=== PATIENT | female | born 1955 | race Caucasian/White ===

== ENCOUNTER 2017-07-08 10:03 | Emergency (ER) | payer MEDICARE ==
[2017-07-08] MEDS ORDERED: Phenergan 25 MG INJ IM ONE (10:58)
[2017-07-08] MEDS ORDERED: Lactated Ringers 1,000 ML IV SCH (11:00)
--- NOTE | 2017-07-08 11:03 | ERPHSYRPT ---
- History of Present Illness Time Seen by Provider: 07/08/17 10:49 Source: patient, family Patient Subjective Stated Complaint: abdominal pain, nausea, diarrhea Triage Nursing Assessment: pt to er c/o lower abdominal pain, nausea and diarrhea, denies vomiting, states has been ongoing x4 days Physician History: CC: diarrhea hx: 61 y/o patient of Dr Gay with chronic diarrhea, uses creon and lomotil. Much worse over past 4 days. She is weak all over. She has had chronic weight loss. She has moved in with her daughter. No vomiting. Has cramping abd pain. Tried to have colonoscopy but she is too scared. Saw Dr Sharath FLOWERS but she did not meld. No chest pain. No fever or chills. Severity: severe Allergies/Adverse Reactions: nalbuphine HCl [From Nubain] Allergy (Mild, Verified 07/08/17 10:42) Penicillins Allergy (Mild, Verified 07/08/17 10:42) vancomycin Allergy (Mild, Verified 07/08/17 10:42) kidney failure et mary blood glucose aspirin Adverse Reaction (Intermediate, Verified 07/08/17 10:42) Nausea and Vomiting morphine Adverse Reaction (Intermediate, Verified 07/08/17 10:42) Nausea and Vomiting Home Medications: Diphenoxylate HCl/Atropine [Lomotil] 1 udtab PO Q4H 04/25/15 [History] Oxycodone HCl/Acetaminophen [Percocet 10-325 mg Tablet] 1 each PO QID 04/25/15 [ History] Zolpidem Tartrate [Ambien] 10 mg PO HS 04/25/15 [History] Aspirin [Aspirin EC] 162 mg PO DAILY 06/05/16 [History] Trazodone HCl 150 mg PO HS 06/05/16 [History] Buspirone HCl [Buspar] 10 mg PO BID 09/17/16 [History] Gabapentin 600 tab PO TID 09/17/16 [History] Lipase/Protease/Amylase [Sonya Dr 3,000 Units Capsule] 1 each PO TIDAC 09/17/16 [History] Amitriptyline HCl [Elavil] 50 mg PO DAILY 07/07/17 [History] Hx Tetanus, Diphtheria Vaccination/Date Given: No Hx Influenza Vaccination/Date Given: Yes Hx Pneumococcal Vaccination/Date Given: Yes - Review of Systems Constitutional: Fatigue, Malaise, Weakness, No Fever, No Chills Eyes: No Symptoms Ears, Nose, & Throat: No Symptoms Respiratory: No Cough, No Dyspnea Cardiac: No Chest Pain Abdominal/Gastrointestinal: Abdominal Pain, Nausea, Diarrhea, No Vomiting Genitourinary Symptoms: No Dysuria Psychological: Depression All Other Systems: Reviewed and Negative - Past Medical History Pertinent Past Medical History: Yes Neurological History: Stroke ENT History: No Pertinent History Cardiac History: Coronary Artery Disease Respiratory History: COPD Endocrine Medical History: No Pertinent History Musculoskeletal History: Arthritis, Other GI Medical History: Irritable Bowel History: No Pertinent History Psycho-Social History: Anxiety, Depression Female Reproductive Disorders: No Pertinent History Other Medical History: insomnia - Past Surgical History Past Surgical History: Yes Neuro Surgical History: No Pertinent History Cardiac: CABG Respiratory: No Pertinent History Gastrointestinal: Appendectomy Genitourinary: No Pertinent History Musculoskeletal: Orthopedic Surgery Female Surgical History: Tubal Ligation Other Surgical History: CAROTID BYPASS, , states 15 knee replacements (total bilateral),toe surgery,. Septic left knee - Social History Smoking Status: Current every day smoker How long have you smoked: 30 Exposure to second hand smoke: Yes Drug Use: none Patient Lives Alone: No - Female History Hx Now: No - Nursing Vital Signs Nursing Vital Signs: Initial Vital Signs Temperature 97.8 F 07/08/17 10:31 Pulse Rate 89 07/08/17 10:31 Respiratory Rate 20 07/08/17 10:31 Blood Pressure 139/87 07/08/17 10:31 O2 Sat by Pulse Oximetry 98 07/08/17 10:31 Pain Scale Pain Intensity 4 - Physical Exam General Appearance: alert, other (frail, elderly lady) Eye Exam: PERRL/EOMI Ears, Nose, Throat Exam: dry mucous membranes Neck Exam: normal inspection, supple Respiratory Exam: normal breath sounds Cardiovascular Exam: regular rate/rhythm Gastrointestinal/Abdomen Exam: soft, distention, other (diffuse discomfort, no mass) Back Exam: normal inspection Extremity Exam: normal inspection Neurologic Exam: alert, oriented x 3, cooperative, sensation nml, No motor deficits Skin Exam: warm, dry, other (sallow appearance) SpO2 Interpretation: normal SpO2: 98 Oxygen Delivery: Room Air - Course Nursing assessment & vital signs reviewed: Yes Ordered Tests: Active Orders 24 hr Category Date Time Status IV Insertion STAT Care 07/08/17 10:58 Active cath [Cath for Specimen-Straight] STAT Care 07/08/17 11:00 Active ABDOMEN AND PELVIS W CONTRAST [CT] Stat Exams 07/08/17 13:20 Completed CBC W DIFF Stat Lab 07/08/17 11:07 Completed CMP Stat Lab 07/08/17 11:07 Completed LIPASE Stat Lab 07/08/17 11:07 Completed Lactic Acid Stat Lab 07/08/17 10:58 Completed UA W/RFX UR CULTURE Stat Lab 07/08/17 11:30 Completed Medication Summary Generic Name Dose Route Start Last Admin Trade Name Freq PRN Reason Stop Dose Admin Lactated Ringer's 1,000 mls @ 250 mls/hr 07/08/17 11:00 07/08/17 11:27 Lactated Ringers IV 08/07/17 10:59 250 mls/hr .Q4H ASYA Administration Discontinued Medications Generic Name Dose Route Start Last Admin Trade Name Freq PRN Reason Stop Dose Admin Promethazine HCl 12.5 mg 07/08/17 10:58 07/08/17 11:27 Phenergan 25 Mg Inj IM 07/08/17 10:59 12.5 mg STAT ONE Administration Promethazine HCl Confirm 07/08/17 11:20 Phenergan 25 Mg Inj Administered 07/08/17 11:21 Dose 25 mg .ROUTE .STK-MED ONE Lab/Rad Data: Laboratory Result Diagrams 07/08/17 11:07 07/08/17 11:07 Laboratory Results 07/08/17 07/08/17 07/08/17 Range/Units 11:30 11:07 11:07 WBC 13.5 H (4.0-10.5) K/mm3 RBC 5.67 H (4.1-5.4) M/mm3 Hgb 16.1 H (12.0-16.0) gm/dl Hct 47.5 H (35-47) % MCV 83.8 (78-100) fl MCH 28.3 (26-32) pg MCHC 33.9 (32-36) g/dl RDW 14.2 H (11.5-14.0) % Plt Count 395 (150-450) K/mm3 MPV 10.3 H (6-9.5) fl Gran % 66.1 H (36.0-66.0) % Lymphocytes % 29.4 (24.0-44.0) % Monocytes % 3.9 (0.0-12.0) % Eosinophils % 0.4 (0.00-5.0) % Basophils % 0.2 (0.0-0.4) % Basophils # 0.03 (0-0.4) Sodium 142 (137-145) mmol/L Potassium 3.8 (3.5-5.1) mmol/L Chloride 105 (98-107) mmol/L Carbon Dioxide 23 (22-30) mmol/L Anion Gap 17.9 H (5-15) MEQ/L BUN 10 (7-17) mg/dL Creatinine 0.82 (0.52-1.04) mg/dL Estimated GFR > 60 ML/MIN Glucose 98 (74-106) mg/dL Lactic Acid (0.4-2.0) Calcium 9.9 (8.4-10.2) mg/dL Total Bilirubin 0.50 (0.2-1.3) mg/dL AST 20 (14-36) U/L ALT 10 (0-35) U/L Alkaline Phosphatase 124 (38-126) U/L Serum Total Protein 7.9 (6.3-8.2) g/dL Albumin 4.5 (3.5-5.0) g/dL Lipase 108 (23-300) U/L Ur Collection Type CATH Urine Color YELLOW (YELLOW) Urine Appearance CLEAR (CLEAR) Urine pH 5.0 (5-6) Ur Specific [place] 1.010 (1.005-1.025) Urine Protein NEGATIVE (Negative) Urine Ketones NEGATIVE (NEGATIVE) Urine Blood NEGATIVE (0-5) Papa/ul Urine Nitrite NEGATIVE (NEGATIVE) Urine Bilirubin NEGATIVE (NEGATIVE) Urine Urobilinogen NORMAL (0-1) mg/dL Ur Leukocyte Esterase NEGATIVE (NEGATIVE) Urine Culture Reflexed NO (NO) Urine Glucose NEGATIVE (NEGATIVE) mg/dL Specimen Received 07/08/17 1130 07/08/17 Range/Units 10:58 WBC (4.0-10.5) K/mm3 RBC (4.1-5.4) M/mm3 Hgb (12.0-16.0) gm/dl Hct (35-47) % MCV (78-100) fl MCH (26-32) pg MCHC (32-36) g/dl RDW (11.5-14.0) % Plt Count (150-450) K/mm3 MPV (6-9.5) fl Gran % (36.0-66.0) % Lymphocytes % (24.0-44.0) % Monocytes % (0.0-12.0) % Eosinophils % (0.00-5.0) % Basophils % (0.0-0.4) % Basophils # (0-0.4) Sodium (137-145) mmol/L Potassium (3.5-5.1) mmol/L Chloride (98-107) mmol/L Carbon Dioxide (22-30) mmol/L Anion Gap (5-15) MEQ/L BUN (7-17) mg/dL Creatinine (0.52-1.04) mg/dL Estimated GFR ML/MIN Glucose (74-106) mg/dL Lactic Acid 1.2 (0.4-2.0) Calcium (8.4-10.2) mg/dL Total Bilirubin (0.2-1.3) mg/dL AST (14-36) U/L ALT (0-35) U/L Alkaline Phosphatase (38-126) U/L Serum Total Protein (6.3-8.2) g/dL Albumin (3.5-5.0) g/dL Lipase (23-300) U/L Ur Collection Type Urine Color (YELLOW) Urine Appearance (CLEAR) Urine pH (5-6) Ur Specific [place] (1.005-1.025) Urine Protein (Negative) Urine Ketones (NEGATIVE) Urine Blood (0-5) Papa/ul Urine Nitrite (NEGATIVE) Urine Bilirubin (NEGATIVE) Urine Urobilinogen (0-1) mg/dL Ur Leukocyte Esterase (NEGATIVE) Urine Culture Reflexed (NO) Urine Glucose (NEGATIVE) mg/dL Specimen Received - Progress Progress Note: 07/08/17 13:05 Labs reviewed with pt. She drank oral contrast. Await CT scan. IVF in progress. 07/08/17 13:57 CT abdpelvis: 1. Sigmoid diverticulosis without diverticulitis. 2. Small hiatal hernia. 3. Remaining CT abdomen/pelvis with contrast exam negative. 07/08/17 14:39 The patient is stable. No diarrhea here. Advised follow up with Dr Gay this week. Counseled pt/family regarding: lab results, diagnosis, need for follow-up, rad results - Departure Time of Disposition: 14:40 Departure Disposition: Home Clinical Impression: Diarrhea, Dehydration Condition: Fair Critical Care Time: No Referrals: MILE GAY [Primary Care Provider] - Instructions: Diarrhea and Traveler's Diarrhea, Adult (DC) Additional Instructions: VOMITING AND DIARRHEA 1. Take only small amounts of clear, cool liquids at frequent intervals as tolerated for the next 24-48 hours. Avoid milk products and orange juice. Clear liquids are those liquids which you can see through. 2. Pedialyte and popsicles are recommended clear liquids. 3. If the condition worsens you should contact your family physician or return to the emergency department for re-evaluation. See Dr Gay this week as instructed. Continue lomotil as already prescribed.
[2017-07-08 11:13] LABS: BASOPHIL % 0.2 % (0.0-0.4); Basophil (Absolute #) 0.03 (0-0.4); Eosinophil % 0.4 % (0.00-5.0); Eosinophil (Absolute #) 0.06 (0-0.5); Granulocytes % 66.1 % (36.0-66.0); Hematocrit 47.5 % (35-47); Hemoglobin 16.1 gm/dl (12.0-16.0); Lymphocyte (Absolute #) 3.96 (1.0-4.6); Lymphocytes % 29.4 % (24.0-44.0); Mean Cell Volume 83.8 fl (78-100); Mean Corpuscular Hgb Concent. 33.9 g/dl (32-36); Mean Platelet Volume 10.3 fl (6-9.5); Monocyte (Absolute #) 0.52 (0.0-1.3); Monocytes % 3.9 % (0.0-12.0); Platelet Count 395 K/mm3 (150-450); Red Blood Count 5.67 M/mm3 (4.1-5.4); Red Cell Distribution Width 14.2 % (11.5-14.0); White Blood Count 13.5 K/mm3 (4.0-10.5)
[2017-07-08 11:15] LABS: Mean Corpuscular Hemoglobin 28.3 pg (26-32)
[2017-07-08] MEDS ORDERED: Lactated Ringers 1,000 ML IV ONE (11:20)
[2017-07-08] MEDS ORDERED: Phenergan 25 MG INJ ONE (11:20)
[2017-07-08 11:38] LABS: Appearance CLEAR (CLEAR); Bilirubin NEGATIVE (NEGATIVE); Blood NEGATIVE Ery/ul (0-5); Glucose NEGATIVE (NEGATIVE); Ketones NEGATIVE (NEGATIVE); Leukocyte Esterase NEGATIVE (NEGATIVE); Nitrite NEGATIVE (NEGATIVE); Protein,Urine Dip NEGATIVE (Negative); Urobilinogen NORMAL mg/dL (0-1)
[2017-07-08 11:41] LABS: ALBUMIN 4.5 g/dL (3.5-5.0); ALKALINE PHOSPHATASE 124 U/L (38-126); ANION GAP 17.9 MEQ/L (5-15); BLOOD UREA NITROGEN 10 mg/dL (7-17); CHLORIDE 105 mmol/L (98-107); Calcium 9.9 mg/dL (8.4-10.2); Carbon Dioxide 23 mmol/L (22-30); Creatinine 1 0.82 mg/dL (0.52-1.04); Glucose 98 mg/dL (74-106); LIPASE 108 U/L (23-300); Potassium 3.8 mmol/L (3.5-5.1); SGOT/AST 20 U/L (14-36); SGPT/ALT 10 U/L (0-35); SODIUM 142 mmol/L (137-145); Total Protein 7.9 g/dL (6.3-8.2)
--- NOTE | 2017-07-08 13:46 | XRAY ---
Indication: Abdominal pain, diarrhea, and weight loss. Multiple contiguous axial images obtained through the abdomen and pelvis using 80 cc Isovue 370 contrast. Enteric contrast also administered. Comparison: None Lung bases demonstrates minimal bibasilar fibrosis/scarring. No infiltrate or effusion. Heart is not enlarged. Small hiatal hernia. Contrasted stomach and bowel loops appear nonobstructed. Scattered sigmoid diverticulosis without diverticulitis. Previous reported appendectomy. Remaining liver, gallbladder, pancreas, spleen, adrenal glands, kidneys, ureters, bladder, and uterus appear unremarkable. Mild aortoiliac calcifications. No AAA or pathologic retroperitoneal lymphadenopathy. Osseous structures intact with lumbosacral junction degenerative disc disease. Impression: 1. Sigmoid diverticulosis without diverticulitis. 2. Small hiatal hernia. 3. Remaining CT abdomen/pelvis with contrast exam negative. CTDI 8.07
[2017-07-08 14:41] VITALS: BP 102/66; PULSE 84; O2SAT 98
== END 2017-07-08 14:54 | disposition home or self-care (01) ==
LOC: ED 10:03
DX: R19.7 Diarrhea, unspecified (principal); E86.0 Dehydration; Z79.899 Other long term (current) drug therapy; I25.810 Atherosclerosis of coronary artery bypass graft(s) without angina pectoris; J44.9 Chronic obstructive pulmonary disease, unspecified; M19.90 Unspecified osteoarthritis, unspecified site; F41.8 Other specified anxiety disorders
CPT/HCPCS: 96372; 99284; 36000; 96360; 96361; 81002; 36415; 83690; 85025; 80053; 74177; 83605; P9612; 99283; J2550

== ENCOUNTER 2019-08-14 09:50 | Inpatient (IN) | payer MEDICARE ==
[2019-08-14] MEDS ORDERED: TYLENOL 325 MG PO PRN (14:16)
[2019-08-14] MEDS ORDERED: VENTOLIN COMMON CANISTER IH PRN (14:19)
[2019-08-14 15:26] LABS: ALBUMIN 3.7 g/dL (3.5-5.0); ALKALINE PHOSPHATASE 95 U/L (38-126); ANION GAP 9.5 MEQ/L (5-15); BLOOD UREA NITROGEN 15 mg/dL (7-17); CHLORIDE 106 mmol/L (98-107); Carbon Dioxide 27 mmol/L (22-30); Glucose 86 mg/dL (74-106); Potassium 4.5 mmol/L (3.5-5.1); SGOT/AST 17 U/L (14-36); SGPT/ALT 7 U/L (0-35); SODIUM 138 mmol/L (137-145); Total Protein 6.8 g/dL (6.3-8.2)
[2019-08-14] MEDS: ROCEPHIN 1 Gm-D5w 50 ml Bag** 1 G/50 ML IVPB IV SCH (15:45)
[2019-08-14] MEDS: NICODERM CQ 14 MG TOP SCH (15:45)
[2019-08-14] MEDS: Zithromax 500 MG/ 250 ML NaCl Premix 500 MG/250 ML IVPB IV SCH (15:45)
[2019-08-14] MEDS ORDERED: MEDICATION INTERVENTION MC SCH (15:45)
[2019-08-14 15:52] LABS: Absolute Neutrophil Ct (ANC) 5.61 (1.4-6.9); BASOPHIL % 0.2 % (0.0-0.4); Basophil (Absolute #) 0.02 (0-0.4); Eosinophil % 1.1 % (0.00-5.0); Hematocrit 39.9 % (35-47); Lymphocyte (Absolute #) 3.25 (1.0-4.6); Lymphocytes % 34.3 % (24.0-44.0); Mean Cell Volume 86.2 fl (78-100); Mean Corpuscular Hemoglobin 28.1 pg (26-32); Mean Corpuscular Hgb Concent. 32.6 g/dl (32-36); Mean Platelet Volume 10.9 fl (7.5-11.0); Monocyte (Absolute #) 0.49 (0.0-1.3); Monocytes % 5.2 % (0.0-12.0); Neutrophil % 59.2 % (36.0-66.0); Platelet Count 255 K/mm3 (150-450); Red Blood Count 4.63 M/mm3 (4.1-5.4); Red Cell Distribution Width 15.5 % (11.5-14.0); White Blood Count 9.5 K/mm3 (4.0-10.5)
[2019-08-14] MEDS: Protonix 40MG Tablet PO SCH (16:28)
[2019-08-14] MEDS: Neurontin 400 MG PO SCH ×2 (16:28→20:39)
[2019-08-14] MEDS: BENTYL 20 MG PO SCH ×2 (16:28→20:41)
[2019-08-14] MEDS ORDERED: PROTEASE PO SCH (16:30)
[2019-08-14] MEDS ORDERED: LIPASE PO SCH (16:30)
[2019-08-14] MEDS ORDERED: AMYLASE PO SCH (16:30)
[2019-08-14] MEDS: PANCRELIPASE DR 5,000 UNIT CAP PO SCH (17:09)
[2019-08-14] MEDS: Lomotil PO PRN ×2 (17:58→23:32)
[2019-08-14] MEDS: ULTRAM 50 MG PO PRN (19:32)
[2019-08-14] MEDS: Ambien 10 MG PO SCH (20:39)
[2019-08-14] MEDS: Abilify 10 MG PO SCH (20:39)
[2019-08-14] MEDS: Zofran 4 MG/2 ML VIAL IV PRN (20:41)
[2019-08-14] MEDS: REQUIP 2MG TAB PO SCH (20:41)
[2019-08-14] MEDS: Desyrel 150 MG PO SCH (20:42)
[2019-08-14] MEDS: ceLEXa 20 MG PO SCH (20:42)
[2019-08-14] MEDS ORDERED: NON-FORMULARY ITEM (Aripiprazole [Aripiprazole] 5 mg) PO SCH (22:00)
[2019-08-14] MEDS ORDERED: NON-FORMULARY ITEM (Trazodone Hcl [Trazodone Hcl] 150 MG) PO SCH (22:00)
[2019-08-15] MEDS: ULTRAM 50 MG PO PRN ×2 (01:20→06:54)
[2019-08-15] MEDS: Lomotil PO PRN ×4 (06:53→22:03)
[2019-08-15] MEDS: PANCRELIPASE DR 5,000 UNIT CAP PO SCH ×3 (08:04→17:12)
[2019-08-15] MEDS: Zofran 4 MG/2 ML VIAL IV PRN ×2 (08:05→17:32)
[2019-08-15] MEDS: ROCEPHIN 1 Gm-D5w 50 ml Bag** 1 G/50 ML IVPB IV SCH (09:42)
[2019-08-15] MEDS: Neurontin 400 MG PO SCH ×3 (09:43→22:04)
[2019-08-15] MEDS: Protonix 40MG Tablet PO SCH (09:43)
[2019-08-15] MEDS: BENTYL 20 MG PO SCH ×4 (09:43→22:03)
[2019-08-15] MEDS: Zithromax 500 MG/ 250 ML NaCl Premix 500 MG/250 ML IVPB IV SCH (09:43)
--- NOTE | 2019-08-15 10:22 | PCM.HP ---
History of Present Illness - Chief Complaint Chief Complaint: PNEUMONIA, R/O COVID-19 History of Present Illness: is a 63 year old female patient of Dr Gay who presented to [facility] on date of admission, she reported cough, difficulty breathing and fever at night. she was hospitalized within the last 3 weeks at [facility] and covid swab was negative, she had left knee replacement/revision on 06/22/19 and has done poorly since then. she complains of feeling heavy in her chest this morning contantly over the last couple of weeks and difficulty getting in a good breath, her cough is nonproductive. - Review of Systems Constitutional: Fever, Chills Ears, Nose, & Throat: No Symptoms Respiratory: Cough, Short Of Breath Cardiac: Chest Pain Abdominal/Gastrointestinal: Nausea (chronic), No Abdominal Pain, No Vomiting, No Diarrhea Skin: No Rash Neurological: No Dizziness, No Focal Weakness, No Sensory Changes All Other Systems: Reviewed and Negative Medications & Allergies Home Medications: Home Medication List Trazodone HCl 150 mg PO HS 06/05/16 [History Confirmed 08/14/19] ARIPiprazole [Aripiprazole] 5 mg PO HS 08/14/19 [History Confirmed 08/14/19] Albuterol Sulfate [Albuterol Sulfate Hfa] 2 puff IH Q4HPRN PRN 08/14/19 [ History Confirmed 08/14/19] Arformoterol Tartrate [Brovana] 15 mcg IH BID 08/14/19 [History Confirmed ] Budesonide 0.5 mg/2 ml [Pulmicort 0.5 mg/2 ml Respules] 0.5 mg IH BID [History Confirmed 08/14/19] Citalopram Hydrobromide 20 mg* [ceLEXa 20 MG] 20 mg PO HS 08/14/19 [History Confirmed 08/14/19] Dicyclomine HCl 20 mg [Bentyl 20 mg] 20 mg PO QID 08/14/19 [History Confirmed 08/14/19] Diphenoxylate HCl/Atropine [Diphenoxylate-Atrop 2.5-0.025] 1 tab PO Q4H [History Confirmed 08/14/19] Gabapentin 800 mg PO TID 08/14/19 [History Confirmed 08/14/19] Lipase/Protease/Amylase [Sonya Mcclellan 12,000 Units Capsule] 1 cap PO AC 08/14/19 [ History Confirmed 08/14/19] Omeprazole 20 mg PO DAILY 08/14/19 [History Confirmed 08/14/19] Ropinirole HCl 1 mg PO HS 08/14/19 [History Confirmed 08/14/19] Zolpidem Tartrate 10 mg PO HS 08/14/19 [History Confirmed 08/14/19] ondansetron HCL [Ondansetron HCl] 4 mg PO QID 08/14/19 [History Confirmed ] Allergies/Adverse Reactions: Allergies Allergy/AdvReac Type Severity Reaction Status Date / Time nalbuphine HCl [From Nubain] Allergy Mild Verified 07/08/17 10:42 Penicillins Allergy Mild Verified 07/08/17 10:42 vancomycin Allergy Mild Verified 07/08/17 10:42 aspirin AdvReac Intermediate Nausea and Verified 07/08/17 10:42 Vomiting morphine AdvReac Intermediate Nausea and Verified 07/08/17 10:42 Vomiting - Past Medical History Past Medical History: Yes Neurological History: Stroke ENT History: No Pertinent History Cardiac History: Coronary Artery Disease Respiratory History: COPD Endocrine Medical History: No Pertinent History Musculoskelatal History: Arthritis, Other GI Medical History: Irritable Bowel, Other History: No Pertinent History Pyscho-Social History: Anxiety, Depression Reproductive Disorders: No Pertinent History Comment: insomnia; panceratic insufficiency - Female History Are you now?: No - Past Surgical History Past Surgical History: Yes Neuro Surgical History: No Pertinent History Cardiac History: CABG Respiratory Surgery: No Pertinent History GI Surgical History: Appendectomy Genitourinary Surgical Hx: No Pertinent History Musculskeletal Surgical Hx: Orthopedic Surgery Female Surgical History: Tubal Ligation Other Surgical History: CAROTID BYPASS, , states 15 knee replacements (total bilateral),toe surgery,. Septic left knee - Social History Smoking Status: Current every day smoker How long have you smoked: "35 years" Exposure to second hand smoke: Yes Alcohol: None Drug Use: none - Physical Exam Vital Signs: Vital Signs - 24 hr Temp Pulse Resp BP BP Pulse Ox 08/15/19 10:00 18 08/15/19 09:36 70 18 96 08/15/19 08:58 14 08/15/19 08:00 97.8 F 66 20 117/69 93 L 08/15/19 07:04 74 20 92 L 08/15/19 07:00 16 08/15/19 06:00 62 13 94 L 08/15/19 05:00 14 08/15/19 04:00 98.1 F 71 19 105/68 93 L 08/15/19 03:00 61 16 97 08/15/19 02:00 16 08/15/19 01:00 74 16 92 L 08/15/19 00:58 16 08/14/19 23:41 98.1 F 68 16 107/68 93 L 08/14/19 22:00 69 20 91 L 08/14/19 20:59 26 H 08/14/19 20:00 98.1 F 89 18 104/63 94 L 08/14/19 19:45 20 08/14/19 19:00 72 20 92 L 08/14/19 18:00 68 18 90 L 08/14/19 17:00 17 08/14/19 16:16 98.3 F 71 20 124/68 93 L 08/14/19 16:00 97.8 F 65 17 114/62 92 L 08/14/19 15:33 71 18 94 L 08/14/19 15:00 68 18 94 L 08/14/19 13:31 98.3 F 71 20 124/68 93 L Oxygen-Last 24 hours Oxygen Flowrate (L/min)-RT 4 Oxygen Flowrate (L/min)-RT 4 Oxygen Flowrate (L/min)-RT 5 Oxygen Flowrate (L/min)-RT 4 Oxygen Flowrate (L/min)-RT 4 General Appearance: no apparent distress, alert Neurologic Exam: alert, oriented x 3, cooperative Respiratory Exam: diminished breath sounds, wheezing Cardiovascular Exam: regular rate/rhythm, normal heart sounds, normal peripheral pulses Gastrointestinal/Abdomen Exam: soft, normal bowel sounds, No tenderness, No mass Extremity Exam: normal inspection, normal range of motion, pelvis stable Skin Exam: normal color, warm, dry, No rash Results - Labs Lab/Micro Results: Lab Results-Last 24 Hours 08/14/19 08/14/19 Range/Units 15:05 15:05 WBC 9.5 (4.0-10.5) K/mm3 RBC 4.63 (4.1-5.4) M/mm3 Hgb 13.0 (12.0-16.0) gm/dl Hct 39.9 (35-47) % MCV 86.2 (78-100) fl MCH 28.1 (26-32) pg MCHC 32.6 (32-36) g/dl RDW 15.5 H (11.5-14.0) % Plt Count 255 (150-450) K/mm3 MPV 10.9 (7.5-11.0) fl Gran % 59.2 (36.0-66.0) % Eos # (Auto) 0.10 (0-0.5) Absolute Lymphs (auto) 3.25 (1.0-4.6) Absolute Monos (auto) 0.49 (0.0-1.3) Lymphocytes % 34.3 (24.0-44.0) % Monocytes % 5.2 (0.0-12.0) % Eosinophils % 1.1 (0.00-5.0) % Basophils % 0.2 (0.0-0.4) % Absolute Granulocytes 5.61 (1.4-6.9) Basophils # 0.02 (0-0.4) Sodium 138 (137-145) mmol/L Potassium 4.5 (3.5-5.1) mmol/L Chloride 106 (98-107) mmol/L Carbon Dioxide 27 (22-30) mmol/L Anion Gap 9.5 (5-15) MEQ/L BUN 15 (7-17) mg/dL Creatinine 0.70 (0.52-1.04) mg/dL Estimated GFR > 60.0 ML/MIN Glucose 86 (74-106) mg/dL Calcium 9.0 (8.4-10.2) mg/dL Total Bilirubin 0.40 (0.2-1.3) mg/dL AST 17 (14-36) U/L ALT 7 (0-35) U/L Alkaline Phosphatase 95 (38-126) U/L Serum Total Protein 6.8 (6.3-8.2) g/dL Albumin 3.7 (3.5-5.0) g/dL Microbiology 08/14/19 15:05 Blood Culture - Preliminary Blood NO GROWTH TO DATE 08/14/19 14:55 Blood Culture - Preliminary Blood NO GROWTH TO DATE - Other Procedures and Tests Respiratory Therapy 08/14/19 15:06 Oxygen Nasal Cannula 2 lpm Respiratory Therapy Assessment DAILY 08/15/19 10:15 EKG ROUTINE Assessment/Plan (1) Acute exacerbation of chronic obstructive pulmonary disease (COPD) Current Visit: Yes Status: Acute Assessment & Plan: on rocephin/zithrimax and added IV solu medrol Code(s): J44.1 - CHRONIC OBSTRUCTIVE PULMONARY DISEASE W (ACUTE) EXACERBATION (2) Chest heaviness Current Visit: Yes Status: Acute Assessment & Plan: check ekg, troponin, d-dimer today. started on lovenox, covid-19 swab ordered on admission Code(s): R07.89 - OTHER CHEST PAIN (3) Shortness of breath Current Visit: Yes Status: Acute Code(s): R06.02 - SHORTNESS OF BREATH (4) Weakness Current Visit: Yes Status: Acute Code(s): R53.1 - WEAKNESS (5) Pulmonary cachexia due to COPD Current Visit: Yes Status: Acute Code(s): J44.9 - CHRONIC OBSTRUCTIVE PULMONARY DISEASE, UNSPECIFIED; R64 - CACHEXIA (6) Pancreatic insufficiency Current Visit: Yes Status: Acute Code(s): K86.89 - OTHER SPECIFIED DISEASES OF PANCREAS (7) Status post left knee replacement Current Visit: Yes Status: Acute Code(s): Z96.652 - PRESENCE OF LEFT ARTIFICIAL KNEE JOINT
[2019-08-15] MEDS: solu-MEDROL 125 MG IV SCH ×2 (10:42→22:05)
[2019-08-15] MEDS: NORCO 5/325 MG PO PRN ×3 (10:43→20:02)
[2019-08-15] MEDS: ENOXAPARIN SODIUM SQ SCH (10:44)
[2019-08-15] MEDS: Sodium Chloride 0.9% 10 ML FLUSH Syringe IV SCH ×2 (15:50→22:34)
[2019-08-15] MEDS: NICODERM CQ 14 MG TOP SCH (15:50)
--- NOTE | 2019-08-15 19:42 | XRAY ---
Indication: Elevated d-dimer. COPD. Suspect COVID 19. Multiple contiguous axial images obtained through the chest using 80 cc Isovue 370 contrast and PE protocol. Comparison: None There is good opacification of the pulmonary arteries including lobar and segmental branches. No filling defect/pulmonary embolus. Heart is not enlarged. Aorta is normal in course and caliber. No pathologic mediastinal/hilar lymphadenopathy. Lungs demonstrates diffuse pulmonary emphysema with minimal scattered fibrosis/scarring bilaterally and minimal bibasilar atelectasis. No suspicious pulmonary mass, infiltrate, groundglass opacity, consolidation, or effusion. Bony thorax demonstrates osteopenia, right humeral head orthopedic tack, and minimal T7 superior endplate concave deformity either Schmorl node versus old injury. Limited upper abdomen demonstrates mild fatty liver. Impression: 1. Negative pulmonary embolus. No acute cardiopulmonary abnormalities. 2. Incidental pulmonary emphysema, fatty liver, and chronic bony findings. Comment: Preliminary interpretation was made by [facility]. No critical discrepancy.
[2019-08-15] MEDS: Ambien 10 MG PO SCH (22:04)
[2019-08-15] MEDS: ceLEXa 20 MG PO SCH (22:04)
[2019-08-15] MEDS: REQUIP 2MG TAB PO SCH (22:32)
[2019-08-15] MEDS: Desyrel 150 MG PO SCH (22:36)
[2019-08-15] MEDS: Abilify 10 MG PO SCH (22:37)
[2019-08-16] MEDS: Desyrel 150 MG PO SCH ×2 (00:15→20:41)
[2019-08-16] MEDS: REQUIP 2MG TAB PO SCH ×2 (00:15→20:41)
[2019-08-16] MEDS: NORCO 5/325 MG PO PRN ×5 (03:57→20:43)
[2019-08-16 04:49] LABS: Absolute Neutrophil Ct (ANC) 6.74 (1.4-6.9); BASOPHIL % 0.1 % (0.0-0.4); Basophil (Absolute #) 0.01 (0-0.4); Eosinophil (Absolute #) 0 (0-0.5); Hematocrit 43.5 % (35-47); Hemoglobin 14.1 gm/dl (12.0-16.0); Lymphocyte (Absolute #) 1.25 (1.0-4.6); Lymphocytes % 15.5 % (24.0-44.0); Mean Cell Volume 85.5 fl (78-100); Mean Corpuscular Hemoglobin 27.7 pg (26-32); Mean Corpuscular Hgb Concent. 32.4 g/dl (32-36); Mean Platelet Volume 10.3 fl (7.5-11.0); Monocyte (Absolute #) 0.07 (0.0-1.3); Monocytes % 0.9 % (0.0-12.0); Neutrophil % 83.5 % (36.0-66.0); Platelet Count 279 K/mm3 (150-450); Red Blood Count 5.09 M/mm3 (4.1-5.4); Red Cell Distribution Width 15.3 % (11.5-14.0); White Blood Count 8.1 K/mm3 (4.0-10.5)
[2019-08-16 05:15] LABS: ALBUMIN 3.7 g/dL (3.5-5.0); ALKALINE PHOSPHATASE 91 U/L (38-126); ANION GAP 13.7 MEQ/L (5-15); BLOOD UREA NITROGEN 18 mg/dL (7-17); CHLORIDE 105 mmol/L (98-107); Calcium 9.3 mg/dL (8.4-10.2); Carbon Dioxide 25 mmol/L (22-30); Creatinine 1 0.72 mg/dL (0.52-1.04); Glucose 178 mg/dL (74-106); Potassium 4.5 mmol/L (3.5-5.1); SGOT/AST 16 U/L (14-36); SGPT/ALT 10 U/L (0-35); SODIUM 139 mmol/L (137-145)
[2019-08-16 05:23] LABS: TROPONIN < 0.012 ng/mL (0.000-0.034)
[2019-08-16] MEDS: solu-MEDROL 125 MG IV SCH ×3 (06:21→20:42)
[2019-08-16] MEDS: Lomotil PO PRN ×3 (06:29→18:32)
[2019-08-16] MEDS: Sodium Chloride 0.9% 10 ML FLUSH Syringe IV SCH ×3 (07:56→20:42)
[2019-08-16] MEDS: PANCRELIPASE DR 5,000 UNIT CAP PO SCH ×3 (07:56→16:45)
[2019-08-16] MEDS: Zofran 4 MG/2 ML VIAL IV PRN ×2 (08:04→14:18)
--- NOTE | 2019-08-16 09:19 | PCM.NOTE ---
Date and Time: 08/16/19916 Subjective Assessment: patient reports feeling much better today, heaviness in her chest is improved, she is breathing easy. currently on 2L oxygen which she has at home and wears at night. she would like to go home today Objective Exam General Appearance: no apparent distress Neurologic Exam: alert, oriented x 3, cooperative Respiratory Exam: diminished breath sounds, prolonged expirations Cardiovascular Exam: regular rate/rhythm, normal heart sounds Gastrointestinal/Abdomen Exam: soft, No tenderness, No mass Extremity Exam: normal inspection, normal range of motion OBJECTIVE DATA Vital Signs: Vital Signs - 24 hr Temp Pulse Resp BP Pulse Ox 08/16/19 09:00 15 08/16/19 08:00 97.7 F 60 18 105/67 94 L 08/16/19 07:00 10 L 08/16/19 06:00 58 L 13 95 08/16/19 05:00 16 08/16/19 04:00 97.4 F 60 16 118/66 95 08/16/19 03:00 16 08/16/19 02:00 56 L 14 94 L 08/16/19 01:00 18 08/16/19 00:00 97.8 F 60 18 115/71 94 L 08/15/19 23:00 16 08/15/19 22:00 97.5 F 60 16 98/56 08/15/19 21:00 16 08/15/19 20:00 97.5 F 60 13 89/54 97 08/15/19 19:40 60 20 95 08/15/19 18:00 16 08/15/19 17:00 18 08/15/19 16:57 63 18 93 L 08/15/19 16:31 97.6 F 66 17 99/65 92 L 08/15/19 16:00 15 08/15/19 15:02 60 13 91 L 08/15/19 15:00 13 08/15/19 14:20 97.5 F 65 17 112/77 91 L 08/15/19 14:00 73 12 89 L 08/15/19 13:18 69 18 91 L 08/15/19 13:00 18 08/15/19 12:14 65 11 L 96 08/15/19 12:00 11 L 08/15/19 11:00 68 16 97 08/15/19 10:00 18 08/15/19 09:36 70 18 96 Oxygen-Last 24 hours Oxygen Flowrate (L/min)-RT 2 Oxygen Flowrate (L/min)-RT 3 Oxygen Flowrate (L/min)-RT 2 Oxygen Flowrate (L/min)-RT 4 Pain Assessment - Last Documented Pain Intensity 8 Pain Scale Used 0-10 Pain Scale Intake and Output: Intake & Output 08/13/19 08/14/19 08/15/19 08/16/19 11:59 11:59 11:59 11:59 Intake Total 480 580 Output Total 100 900 Balance 380 -320 Weight 39.2 kg Lab Results: Lab Results-Last 24 Hours 08/15/19 08/15/19 08/16/19 Range/Units 10:15 10:15 04:35 WBC 8.1 (4.0-10.5) K/mm3 RBC 5.09 (4.1-5.4) M/mm3 Hgb 14.1 (12.0-16.0) gm/dl Hct 43.5 (35-47) % MCV 85.5 (78-100) fl MCH 27.7 (26-32) pg MCHC 32.4 (32-36) g/dl RDW 15.3 H (11.5-14.0) % Plt Count 279 (150-450) K/mm3 MPV 10.3 (7.5-11.0) fl Gran % 83.5 H (36.0-66.0) % Eos # (Auto) 0 (0-0.5) Absolute Lymphs (auto) 1.25 (1.0-4.6) Absolute Monos (auto) 0.07 (0.0-1.3) Lymphocytes % 15.5 L (24.0-44.0) % Monocytes % 0.9 (0.0-12.0) % Eosinophils % 0.0 (0.00-5.0) % Basophils % 0.1 (0.0-0.4) % Absolute Granulocytes 6.74 (1.4-6.9) Basophils # 0.01 (0-0.4) D-Dimer 1453 H* (215-500) ng/mL Sodium (137-145) mmol/L Potassium (3.5-5.1) mmol/L Chloride (98-107) mmol/L Carbon Dioxide (22-30) mmol/L Anion Gap (5-15) MEQ/L BUN (7-17) mg/dL Creatinine (0.52-1.04) mg/dL Estimated GFR ML/MIN Glucose (74-106) mg/dL Calcium (8.4-10.2) mg/dL Total Bilirubin (0.2-1.3) mg/dL AST (14-36) U/L ALT (0-35) U/L Alkaline Phosphatase (38-126) U/L Troponin I < 0.012 (0.000-0.034) ng/mL Serum Total Protein (6.3-8.2) g/dL Albumin (3.5-5.0) g/dL 08/16/19 Range/Units 04:35 WBC (4.0-10.5) K/mm3 RBC (4.1-5.4) M/mm3 Hgb (12.0-16.0) gm/dl Hct (35-47) % MCV (78-100) fl MCH (26-32) pg MCHC (32-36) g/dl RDW (11.5-14.0) % Plt Count (150-450) K/mm3 MPV (7.5-11.0) fl Gran % (36.0-66.0) % Eos # (Auto) (0-0.5) Absolute Lymphs (auto) (1.0-4.6) Absolute Monos (auto) (0.0-1.3) Lymphocytes % (24.0-44.0) % Monocytes % (0.0-12.0) % Eosinophils % (0.00-5.0) % Basophils % (0.0-0.4) % Absolute Granulocytes (1.4-6.9) Basophils # (0-0.4) D-Dimer (215-500) ng/mL Sodium 139 (137-145) mmol/L Potassium 4.5 (3.5-5.1) mmol/L Chloride 105 (98-107) mmol/L Carbon Dioxide 25 (22-30) mmol/L Anion Gap 13.7 (5-15) MEQ/L BUN 18 H (7-17) mg/dL Creatinine 0.72 (0.52-1.04) mg/dL Estimated GFR > 60.0 ML/MIN Glucose 178 H (74-106) mg/dL Calcium 9.3 (8.4-10.2) mg/dL Total Bilirubin 0.30 (0.2-1.3) mg/dL AST 16 (14-36) U/L ALT 10 (0-35) U/L Alkaline Phosphatase 91 (38-126) U/L Troponin I < 0.012 (0.000-0.034) ng/mL Serum Total Protein 7.0 (6.3-8.2) g/dL Albumin 3.7 (3.5-5.0) g/dL Radiology Exams: Radiology Procedures Category Date Time Status CHEST WITH CONTRAST [CT] Stat Exams 08/15/19 12:40 Completed Multi-Disciplinary Progress Notes: Multi-Disciplinary Progress Notes 08/15/19 13:43 Respiratory Note by Paola Rose ROOM AIR SPO2 91% Initialized on 08/15/19 13:43 - END OF NOTE 08/15/19 11:04 Respiratory Note by Paola Rose SPO2 97% ON N/C 3LPM. DEC TO 2LPM Initialized on 08/15/19 11:04 - END OF NOTE 08/15/19 10:00 Respiratory Note by Paola Rose SPO2 98% ON N/C 4LPM. DEC TO 3LPM Initialized on 08/15/19 10:00 - END OF NOTE Assessment/Plan (1) Acute exacerbation of chronic obstructive pulmonary disease (COPD) Current Visit: Yes Status: Acute Assessment & Plan: improving clinically, home on po prednisone and abx when covid results return if negative. Code(s): J44.1 - CHRONIC OBSTRUCTIVE PULMONARY DISEASE W (ACUTE) EXACERBATION (2) Chest heaviness Current Visit: Yes Status: Acute Assessment & Plan: CTA neg for PE, no pneumonia on ct. appears to be related to copd exacerbation Code(s): R07.89 - OTHER CHEST PAIN (3) Shortness of breath Current Visit: Yes Status: Acute Code(s): R06.02 - SHORTNESS OF BREATH (4) Weakness Current Visit: Yes Status: Acute Code(s): R53.1 - WEAKNESS (5) Pulmonary cachexia due to COPD Current Visit: Yes Status: Acute Code(s): J44.9 - CHRONIC OBSTRUCTIVE PULMONARY DISEASE, UNSPECIFIED; R64 - [place] (6) Pancreatic insufficiency Current Visit: Yes Status: Acute Code(s): K86.89 - OTHER SPECIFIED DISEASES OF PANCREAS (7) Status post left knee replacement Current Visit: Yes Status: Acute Code(s): Z96.652 - PRESENCE OF LEFT ARTIFICIAL KNEE JOINT
[2019-08-16] MEDS ORDERED: ENOXAPARIN SODIUM SQ SCH (10:00)
[2019-08-16] MEDS: Zithromax 500 MG/ 250 ML NaCl Premix 500 MG/250 ML IVPB IV SCH (10:29)
[2019-08-16] MEDS: ENOXAPARIN SODIUM SQ SCH (10:30)
[2019-08-16] MEDS: Neurontin 400 MG PO SCH ×3 (10:30→20:41)
[2019-08-16] MEDS: Protonix 40MG Tablet PO SCH (10:30)
[2019-08-16] MEDS: BENTYL 20 MG PO SCH ×4 (10:30→20:41)
[2019-08-16] MEDS: ROCEPHIN 1 Gm-D5w 50 ml Bag** 1 G/50 ML IVPB IV SCH (10:30)
[2019-08-16] MEDS: NICODERM CQ 14 MG TOP SCH (16:45)
[2019-08-16] MEDS: Abilify 10 MG PO SCH (20:39)
[2019-08-16] MEDS: Ambien 10 MG PO SCH (20:41)
[2019-08-16] MEDS: ceLEXa 20 MG PO SCH (20:41)
[2019-08-17] MEDS: NORCO 5/325 MG PO PRN ×3 (04:03→12:18)
[2019-08-17] MEDS: Lomotil PO PRN ×2 (04:14→09:37)
[2019-08-17] MEDS: solu-MEDROL 125 MG IV SCH (05:53)
[2019-08-17] MEDS: Sodium Chloride 0.9% 10 ML FLUSH Syringe IV SCH (05:53)
[2019-08-17] MEDS: Zofran 4 MG/2 ML VIAL IV PRN ×2 (05:59→12:05)
[2019-08-17] MEDS: PANCRELIPASE DR 5,000 UNIT CAP PO SCH ×2 (07:44→12:06)
[2019-08-17] MEDS: ROCEPHIN 1 Gm-D5w 50 ml Bag** 1 G/50 ML IVPB IV SCH (09:36)
[2019-08-17] MEDS: BENTYL 20 MG PO SCH ×2 (09:37→12:17)
[2019-08-17] MEDS: ENOXAPARIN SODIUM SQ SCH (09:37)
[2019-08-17] MEDS: Protonix 40MG Tablet PO SCH (09:37)
[2019-08-17] MEDS: Zithromax 500 MG/ 250 ML NaCl Premix 500 MG/250 ML IVPB IV SCH (09:37)
[2019-08-17] MEDS: Neurontin 400 MG PO SCH (09:37)
--- NOTE | 2019-08-17 10:16 | PCM.DS ---
Discharge Summary Date of Admission: 08/15/19 09:50 Date of Discharge: 08/17/19 Admitting Physician: ARIADNE MENSAH Primary Care Provider: MILE GAY Allergies Allergies nalbuphine HCl [From Nubain] Allergy (Mild, Verified 07/08/17 10:42) Penicillins Allergy (Mild, Verified 07/08/17 10:42) vancomycin Allergy (Mild, Verified 07/08/17 10:42) kidney failure et mary blood glucose aspirin Adverse Reaction (Intermediate, Verified 07/08/17 10:42) Nausea and Vomiting morphine Adverse Reaction (Intermediate, Verified 07/08/17 10:42) Nausea and Vomiting Hospital Summary - Hospital Course Hospital Course: Pt. admitted for increased sob, screened for Covid-19, which has returned today negative, pt. has gradually improved over the past couple of days with no setbacks noted and only minimal cough today she is ready to go home, she does note she is depressed and anxious and noted the [facility] treating her pain outpatient is not helping as much as the [place] she has received here. - Vitals & Intake/Output Vital Signs: Vital Signs Temperature 97.6 F 08/17/19 08:00 Pulse Rate 71 08/17/19 09:47 Respiratory Rate 18 08/17/19 09:47 Blood Pressure 133/69 08/17/19 08:00 O2 Sat by Pulse Oximetry 94 L 08/17/19 09:47 Intake & Output: Intake & Output 08/14/19 08/15/19 08/16/19 08/17/19 11:59 11:59 11:59 11:59 Intake Total 480 730 913 Output Total 788 829 4240 Balance 380 -170 -87 Weight 39.2 kg - Lab Result Diagrams: 08/16/19 04:35 08/16/19 04:35 Lab Results-Last 24 Hrs: Lab Results-Last 24 Hours 08/14/19 Range/Units 15:04 COVID-19 (ISSA) SEE SEPARATE REPORT Micro Results-Entire Visit: Microbiology 08/14/19 15:05 Blood Culture - Preliminary Blood NO GROWTH TO DATE 08/14/19 14:55 Blood Culture - Preliminary Blood NO GROWTH TO DATE - Radiology Exams Ordered Rad Exams-Entire Visit: Radiology Procedures Category Date Time Status CHEST WITH CONTRAST [CT] Stat Exams 08/15/19 12:40 Completed - Procedures and Test Procedures and Tests throughout Hospitalization: Therapy Orders & Screens 08/14/19 15:06 Oxygen Nasal Cannula 2 lpm Comment: Respiratory Therapy Assessment DAILY Comment: 08/14/19 16:49 OT Screen per Nursing Assess Comment: Protocol Order Physician Instructions: Greater than 3 points order OT Admission Screening Reason For Exam: Triggered on Admission Diagnosis: C Open Wound/Cellutlitis/Pressure Ulcers: No Acute Fx/ORIF/Change in wt bearing status: No Severe MUSCULOSKELETAL pain: Yes: left knee ADL Dysfunction: Yes Acute CVA w/Hemiparesis/Hemiplegia: No Decreased Functional Mobility/Strength: Yes Sprain/Strain: No Acute Post-op Mobility Dysfunction: No Total Points: 9 PT Screen per Nursing Assess Comment: Protocol Order Physician Instructions: Greater than 3 points order PT Admission Screenin Reason For Exam: Triggered on Admission Diagnosis: C Open Wound/Cellutlitis/Pressure Ulcers: No Acute Fx/ORIF/Change in wt bearing status: No Severe MUSCULOSKELETAL pain: Yes: left knee ADL Dysfunction: Yes Acute CVA w/Hemiparesis/Hemiplegia: No Decreased Functional Mobility/Strength: Yes Sprain/Strain: No Acute Post-op Mobility Dysfunction: No Total Points: 9 RT Screen per Nursing Assess ONCE Comment: Protocol Order Physician Instructions: Greater than 3 points order RT Admission Screen Reason For Exam: Triggered on Admission Diagnosis: C Diagnosis: C Pneumonia: No Home O2: Yes Asthma: No CHF: No Home CPAP/BIPAP: No Home Nebs/MDI: Yes Total Points: 10 Smoking Cessation Education ONCE Comment: Diagnosis: C Smoking Status: Current every day smoker How long have you smoked: "35 years" Have you smoked in the past 12 months: Yes Approximately how many cigarettes per day: 30 Do you dip or chew tobacco: No 08/15/19 10:15 EKG ROUTINE Comment: Diagnosis: PNEUMONIA, R/O COVID-19 Discharge Exam General Appearance: no apparent distress, alert Neurologic Exam: alert, cooperative Eye Exam: PERRL, EOMI, eyes nml inspection Ears, Nose, Throat Exam: normal ENT inspection Neck Exam: normal inspection, non-tender, supple, full range of motion Respiratory Exam: normal breath sounds, No chest tenderness Cardiovascular Exam: regular rate/rhythm, normal heart sounds Gastrointestinal/Abdomen Exam: soft, normal bowel sounds Pelvic Exam: deferred Rectal Exam: deferred Back Exam: normal inspection Final Diagnosis/Problem List - Final Discharge Diagnosis/Problem (1) Depression Current Visit: Yes Status: Acute Assessment & Plan: Pt. will be started on zoloft and wellbutrin, follow-up with Dr. Gay for recheck and further management. Code(s): F32.9 - MAJOR DEPRESSIVE DISORDER, SINGLE EPISODE, UNSPECIFIED (2) Acute exacerbation of chronic obstructive pulmonary disease (COPD) Current Visit: Yes Status: Acute Assessment & Plan: Pt. will have pulse ox evaluation per respiratory therapy outpatient, we will d/ c her home on Prednisone taper, she will continue home nebulizers as needed, z- pack and keflex for 10days Code(s): J44.1 - CHRONIC OBSTRUCTIVE PULMONARY DISEASE W (ACUTE) EXACERBATION (3) Knee pain, left Current Visit: Yes Status: Acute Assessment & Plan: Will D/C to home on [place] 5 tid for 5 days. Code(s): M25.562 - PAIN IN LEFT KNEE - Discharge Discharge Date: 08/17/19 Disposition: Home, Self-Care Condition: Stable Prescriptions: No Action Trazodone HCl 150 mg PO HS Budesonide 0.5 mg/2 ml [Pulmicort 0.5 mg/2 ml Respules] 0.5 mg IH BID Albuterol Sulfate [Albuterol Sulfate Hfa] 2 puff IH Q4HPRN PRN PRN Reason: Shortness Of Breath/Wheezing Ropinirole HCl 1 mg PO HS Omeprazole 20 mg PO DAILY Zolpidem Tartrate 10 mg PO HS Gabapentin 800 mg PO TID ondansetron HCL [Ondansetron HCl] 4 mg PO QID Diphenoxylate HCl/Atropine [Diphenoxylate-Atrop 2.5-0.025] 1 tab PO Q4H Dicyclomine HCl 20 mg [Bentyl 20 mg] 20 mg PO QID Citalopram Hydrobromide 20 mg* [ceLEXa 20 MG] 20 mg PO HS Lipase/Protease/Amylase [Sonya Mcclellan 12,000 Units Capsule] 1 cap PO AC ARIPiprazole [Aripiprazole] 5 mg PO HS Arformoterol Tartrate [Brovana] 15 mcg IH BID Instructions: High Potassium Diet Follow up with: MILE GAY [Primary Care Provider] - 1 Week
[2019-08-17 12:50] VITALS: BP 135/69; PULSE 62; O2SAT 95
== END 2019-08-17 13:42 | disposition home or self-care (01) | DRG 191 ==
LOC: MED SURG 09:50 → OBSVTOIN 08-15 09:50
PROVIDERS: ADMIT Family Medicine; ATTEND Family Medicine
DX: J44.1 Chronic obstructive pulmonary disease with (acute) exacerbation (principal); R64 Cachexia; F32.9 Major depressive disorder, single episode, unspecified; M25.562 Pain in left knee; R07.9 Chest pain, unspecified; R11.0 Nausea; R05 Cough; K86.89 Other specified diseases of pancreas; R53.1 Weakness; R50.9 Fever, unspecified; Z86.79 Personal history of other diseases of the circulatory system; Z79.899 Other long term (current) drug therapy; Z96.652 Presence of left artificial knee joint; Z86.73 Personal history of transient ischemic attack (TIA), and cerebral infarction without residual deficits; Z95.1 Presence of aortocoronary bypass graft; Z99.81 Dependence on supplemental oxygen
CPT/HCPCS: 36415; 71045; 71260; 80053; 84484; 85025; 85379; 87040; 93005; 93268; 94762; G0378; U0001; 99000; J0456; J0696; J1650; J2405; J2930; A9270-GY